=== PATIENT | female | born 1955 | race Caucasian/White ===

== ENCOUNTER → 2019-08-16 | Outpatient (CLI) | payer SELFPAY ==
[~2019-08-16] MED LIST: ACET500
== END | disposition home or self-care (01) ==
LOC: LAB SHORT 16:35 → LAB 16:35
DX: N39.0 Urinary tract infection, site not specified (principal)
CPT/HCPCS: 87086

== ENCOUNTER → 2020-07-16 | Outpatient (CLI) | payer MEDICARE | END | disposition home or self-care (01) | LOC: LAB 19:37 → LAB SHORT 19:37 | DX: R30.0 Dysuria (principal) | CPT/HCPCS: 87077; 87086; 87186 ==

== ENCOUNTER 2021-03-25 16:44 | Observation (INO) | payer MEDICARE ==
[~2021-03-25] VITALS: Ht 165.1 cm; Wt 82.4 kg
[2021-03-25 17:41] LABS: BASOPHILS ABSOLUTE AUTO 0.05 K/mm3 (0.00-0.23); BASOPHILS PERCENT AUTO 1 % (0-2); EOSINOPHILS ABSOLUTE AUTO 0.16 K/mm3 (0.00-0.68); EOSINOPHILS PERCENT AUTO 2 % (0-6); Hematocrit 40.9 % (33.0-51.0); Hemoglobin 13.4 g/dL (11.5-16.0); IMMATURE GRAN ABSOLUTE AUTO 0.03 K/mm3 (0.00-0.10); IMMATURE GRAN PERCENT AUTO 0 % (0-1); LYMPHOCYTES PERCENT AUTO 32 % (21-46); MONOCYTES ABSOLUTE AUTO 0.66 K/mm3 (0.16-1.47); MONOCYTES PERCENT AUTO 10 % (4-13); Mean Corpuscular HGB 28.8 pg (26.0-34.0); Mean Corpuscular HGB Conc 32.8 g/dL (31.5-36.5); Mean Corpuscular Volume 88 fL (80-100); Mean Platelet Volume 10.7 fL (9.1-12.4); NEUTROPHILS ABSOLUTE AUTO 3.73 K/mm3 (1.96-9.15); NEUTROPHILS PERCENT AUTO 55 % (41-73); Platelet Count 182 K/mm3 (150-400); RDW Coefficient Variation 13.7 % (11.7-14.2); RDW Standard Deviation 44.1 fL (35.1-46.3); Red Blood Cell Count 4.65 M/mm3 (3.80-5.20); White Blood Cell Count 6.83 K/mm3 (4.00-11.30)
[2021-03-25 17:59] LABS: Alanine Aminotransfer (ALT/SGP 25 U/L (12-78); Albumin, Blood 3.6 g/dL (3.4-5.0); Albumin/Globulin Ratio 0.9 (0.8-1.8); Alk Phos 112 U/L (50-136); Anion Gap 7 mmol/L (6-16); Aspartate Aminotrans (AST/SGOT 28 U/L (12-37); Bilirubin, Total 0.2 mg/dL (0.1-1.0); Blood Urea Nitrogen 23 mg/dL (8-24); Bun/Creatinine Ratio 27.8 (12.0-20.0); CO2, Blood 23 mmol/L (21-32); Calcium, Blood 8.9 mg/dL (8.5-10.1); Chloride, Blood 109 mmol/L (98-108); Creatinine, Blood 0.83 mg/dL (0.40-1.00); Globulin, Blood 3.9 g/dL (2.2-4.0); Glomerular Filtration Rate >60 (60-); Glucose, Blood 158 mg/dL (70-99); Potassium, Blood 3.7 mmol/L (3.5-5.5); Sodium, Blood 139 mmol/L (136-145); Total Protein, Blood 7.5 g/dL (6.4-8.2); Troponin I 0.172 ng/mL (0.000-0.040)
[2021-03-25] MEDS ORDERED: METO25ER PO (19:19)
[2021-03-25 23:33] LABS: International Normalized Ratio 0.95; Prothrombin Time Results 10.3 Sec (9.7-11.5)
[2021-03-25 23:35] LABS: Creatine Kinase MB 1.3 ng/mL (0.0-3.6); Creatine Kinase MB Index 1.8 (0.0-4.0); Troponin I 0.208 ng/mL (0.000-0.040)
[2021-03-25 23:58] LABS: SARS-Cov-2 (COVID-19) PCR, MMC NEGATIVE (NEGATIVE)
--- NOTE | 2021-03-26 05:16 | NUR ---
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 PT ADMITTED FOR CP OVER THE LAST 2 WEEKS THAT HAS INCREASED IN INTENSITY OVER THE LAST 2 DAYS. PT REPORTED SOME LIGHT OFF/ON CHEST PAINS WITHOUT RADIATION OR SOB. MEDICATED WITH TYLENOL AND PT REPORTS PAIN DECREASED AND WAS ABLE TO SLEEP. STARTED ON HEPARIN DRIP PER PHARMACY. 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 PT AAOX4 AND INDEPENDENT IN HER ROOM. WILL CONTINUE TO MONITOR.
[2021-03-26 06:08] LABS: BASOPHILS ABSOLUTE AUTO 0.05 K/mm3 (0.00-0.23); BASOPHILS PERCENT AUTO 1 % (0-2); EOSINOPHILS ABSOLUTE AUTO 0.06 K/mm3 (0.00-0.68); EOSINOPHILS PERCENT AUTO 1 % (0-6); Hematocrit 39.6 % (33.0-51.0); Hemoglobin 13.1 g/dL (11.5-16.0); IMMATURE GRAN ABSOLUTE AUTO 0.02 K/mm3 (0.00-0.10); IMMATURE GRAN PERCENT AUTO 0 % (0-1); LYMPHOCYTES PERCENT AUTO 24 % (21-46); MONOCYTES ABSOLUTE AUTO 0.53 K/mm3 (0.16-1.47); MONOCYTES PERCENT AUTO 7 % (4-13); Mean Corpuscular HGB 28.9 pg (26.0-34.0); Mean Corpuscular HGB Conc 33.1 g/dL (31.5-36.5); Mean Corpuscular Volume 87 fL (80-100); Mean Platelet Volume 10.9 fL (9.1-12.4); NEUTROPHILS ABSOLUTE AUTO 5.42 K/mm3 (1.96-9.15); NEUTROPHILS PERCENT AUTO 68 % (41-73); Platelet Count 158 K/mm3 (150-400); RDW Coefficient Variation 13.8 % (11.7-14.2); RDW Standard Deviation 44.4 fL (35.1-46.3); Red Blood Cell Count 4.54 M/mm3 (3.80-5.20); White Blood Cell Count 7.98 K/mm3 (4.00-11.30)
[2021-03-26 06:38] LABS: Anion Gap 5 mmol/L (6-16); Blood Urea Nitrogen 15 mg/dL (8-24); Bun/Creatinine Ratio 19.1 (12.0-20.0); CHOL/HDL RATIO 4.5; CO2, Blood 25 mmol/L (21-32); CPK Creatine Kinase 79 U/L (26-193); Calcium, Blood 8.6 mg/dL (8.5-10.1); Chloride, Blood 110 mmol/L (98-108); Cholesterol 228 mg/dL (50-200); Creatine Kinase MB 3.2 ng/mL (0.0-3.6); Creatine Kinase MB Index 4.1 (0.0-4.0); Creatinine, Blood 0.79 mg/dL (0.40-1.00); Glomerular Filtration Rate >60 (60-); Glucose, Blood 100 mg/dL (70-99); HDL Cholesterol 51 mg/dL (>39); LDL/HDL RATIO 3.1; Low Density Lipoprotein Chol 158 mg/dL (0-110); Magnesium, Blood 2.2 mg/dL (1.6-2.4); Potassium, Blood 3.6 mmol/L (3.5-5.5); Sodium, Blood 140 mmol/L (136-145); Triglycerides 96 mg/dL (30-160); Very Low Density Lipoprot Chol 19 mg/dL (6-32)
--- NOTE | 2021-03-26 11:15 | NUR ---
AUTOMATIC LATHE TENDER IN TO SEE PT. PLANS FOR ANGIOGRAM AFTER PT SPEAKS WITH . PT HAS REMAINED NPO SINCE ARRIVAL TO FLOOR. INDEPENDENT TO BATHROOM. HEPARIN INFUSING AT 14KG/HR.
--- NOTE | 2021-03-26 14:30 | NUR ---
[facility] HERE TO PICK PT UP FOR [facility]GIOGRAM.
--- NOTE | 2021-03-26 18:29 | NUR ---
Pt returned from the labor mediator, Silvia Angeles took bedside report. at 1630 I came into the room, noted that the right hand is purple, right forearm firm and appears swollen, TR band is in place, good pleth on the oximetry monitor and spo2 98 on the right hand. Pt states she is having numbness in her right hand and right forearm. Pressure was applied to the forearm, proximal to the Tr band, and senior systems analyst called to compare the assessment at time of arrival to assessment at 1630. States that there is really no difference, but that 2 cc air had been removed from the band due to the very dark purple color of the right hand, patient discomfort. Over the nex hour, the pt continued to c/o numbness, and hand remained purple, still with good pleth and spo2 98% on the right hand. application consultant Silvia removed some air from the band, until only 6 cc were left in the band but there was no improvement in the pt condition. Silvia called Tatiana Henriquez from labor mediator and aries Durham from labor mediator came up to the room to look at the pt condition. Silvia fully deflated the TR band and manual pressure was applied, and Dr. Coello was called to come and assess the pt condition. Dr. Coello explained that it was due to venous congestion. TR band was reapplied by the correspondent twice with some oozing noted at least twice before the TR band was finally placed where the correspondent found it to be satisfactory, with pleth observable when the Ulnar artery was occluded, and also when the radial was occluded separately. The correspondent has checked on the patient several times here on the unit from 1720 until 1840. She currently has some swelling proximal to the TR band, bruising also
--- NOTE | 2021-03-26 19:22 | NUR ---
pt is continuing to c/o chest pain and headache. Dr. Coello states that the chest pain is not too concerning after two post angio EKGs have been done. Pt was given medication at this time for migraine. Bedside report given to Ioana. Right arm bruising, swelling remains unchanged from prior assessment. Demarkated area of bruising and swelling is unchanged.
--- NOTE | 2021-03-26 19:47 | NUR ---
REMOVED 2ML FROM TR BAND. VSS. SITE STILL SWOLLEN AND BRUISED - BUT UNCHANGED FROM WHEN ASSESSED WITH DAY RN AT HANDOFF. WILL RECHECK IN HALF AN HOUR FOR UPDATED ASSESSMENT.
--- NOTE | 2021-03-27 05:15 | NUR ---
shift summary pt rested well through night. alert and oriented - able to make needs known. cooperative with plan of care. sats >90% on room air. tele nsr. voiding independently to bathroom x2. no bm. no c/o pain. migraine went away after medicine given, and bp improved after migraine. radial site still very bruised, and swelling finally started going down. site cleaned with tegaderm put in place. pt says her hand appears less swollen, but more bruised. arm still elevated and there do not appear to be any futher signs of bleeding or swelling. pt states her cp resolved after some sleep as well. vss. call light within reach, bed in lowest position. will continue to monitor.
--- NOTE | 2021-03-27 07:23 | NUR ---
Pt states she slept well, states a "little heaviness" in her chest area, "but nothing compared to what it was yesterday". this morning. Right arm is bruised, extending beyond the demarcated area, but swelling is decreased from 12 hours ago. Vital signs are stable.
[2021-03-27] MEDS ORDERED: ACET325 PO (12:58)
[2021-03-27] MEDS ORDERED: ASPI81CH PO (12:59)
[2021-03-27] MEDS ORDERED: ATOR40TA PO (12:59)
[2021-03-27] MEDS ORDERED: CLOP75 PO (13:00)
[2021-03-27] MEDS ORDERED: LOSA25 PO (13:00)
--- NOTE | 2021-03-27 13:38 | NUR ---
Discharge instructions were reviewed with and given to the patient. Her is here to pick her up for discharge home. Pt was taken by wheelchair by AILIN Glez out to private vehicle. Tele and IV dc'd.
== END 2021-03-27 13:45 | disposition home or self-care (01) ==
LOC: ER 16:44 → MEDS 16:45 → PCU 03-26 16:08
PROVIDERS: Pharmacist; Physician Assistant; ADMIT Family Medicine
DX: I21.4 Non-ST elevation (NSTEMI) myocardial infarction (principal); I16.0 Hypertensive urgency; E78.5 Hyperlipidemia, unspecified; E66.9 Obesity, unspecified; R73.9 Hyperglycemia, unspecified; M25.561 Pain in right knee; Z20.822 Contact with and (suspected) exposure to COVID-19; M79.661 Pain in right lower leg; Z79.82 Long term (current) use of aspirin; Z79.01 Long term (current) use of anticoagulants; Z68.31 Body mass index [BMI] 31.0-31.9, adult
CPT/HCPCS: 36415; 71046; 76937; 80048; 80053; 80061; 82550; 82553; 82947; 83036; 83735; 83880; 84145; 84484; 85025; 85347; 85379; 85610; 85730; 92978; 93005; 93010; 93306; 93458; 96374; 96375; 96376; 99152; 99153; 99285-25; A9270; C1725; C1753; C1769; C1874; C1887; C1894; C9600; G0378; J0360; J1644; J1815; J2250; J3010; J7030; J7050; Q9967; U0004

== ENCOUNTER → 2021-09-21 | Outpatient (CLI) | payer MEDICARE ==
[~2021-09-21] MED LIST changes: +ACET325 PO; +ASPI81CH PO; +ATOR40TA PO; +CLOP75 PO; +LOSA25 PO; +METO25ER PO
== END | disposition home or self-care (01) ==
LOC: LAB 11:00 → LAB SHORT 11:00
DX: R30.0 Dysuria (principal)
CPT/HCPCS: 87086

== ENCOUNTER → 2021-11-04 | Outpatient (CLI) | payer MEDICARE | END | disposition home or self-care (01) | LOC: LAB SHORT 13:34 | PROVIDERS: Hospitalist | DX: Z12.4 Encounter for screening for malignant neoplasm of cervix (principal) | CPT/HCPCS: G0145 ==